=== PATIENT | male | born 1960 | race Hispanic/Latino ===

== ENCOUNTER 2017-09-25 07:46 | Outpatient (CLI) | payer BC ==
[2017-09-25] MEDS ORDERED: Magnevist 469MG/ML 20 ML VIAL ONE (09:00)
--- NOTE | 2017-09-28 18:14 | MRI ---
MRI BRAIN WITH AND WITHOUT IV CONTRAST: Date: 09-25-17 History: Closed head injury in July 2017. Patient continues to have headaches. History of prior r emoval of a meningioma in the left middle cranial fossa. Comparison: 01-26-12 FINDINGS: This examination was performed on 09-25-17 but was not submitted until 09-28-17. Post-surgical changes related to left frontotemporal craniotomy defect are again noted. There is ence phalomalacia and gliosis in the anterior aspect of the left temporal lobe which is stable from the pr ior study and likely post-operative in origin. No abnormal enhancement is seen in this region to sugg est residual or recurrence of meningioma in this region. No other areas of abnormal enhancement are s een. There is a stable focus increased FLAIR and T2 weighted signal intensity seen within the right a nterior frontal lobe subcortical white matter which is of uncertain etiology or clinical significance . Again, this is a stable finding. This is stable dating back to 2004. No other signal abnormalities are seen throughout the brain. Septum pellucidum and third ventricle are on the midline. The ventricular system is normal in size, s hape and position. There is no evidence of an acute infarction. No signal abnormalities are seen on t he gradient echo images to suggest areas of hemorrhage. Appropriate flow voids are demonstrated at th e base of the brain. There has been no other interval change compared to the prior exam. IMPRESSION: 1. No acute intracranial abnormality is demonstrated. MRI of the brain is unchanged when compared to study of 01-26-12. 2. Post-surgical changes left middle cranial fossa, unchanged from prior exam. POS: [facility]
== END 2017-09-25 07:47 | disposition home or self-care (01) ==
LOC: SCSMRI 07:46
PROVIDERS: ATTEND Neurological Surgery
DX: S09.90XA Unspecified injury of head, initial encounter (principal); R51 Headache; Z98.890 Other specified postprocedural states
CPT/HCPCS: 70553; A9579